=== PATIENT | female | born 1980 | race African-American/Black ===

== ENCOUNTER 2021-10-24 20:52 | Emergency (ER) | payer OTHER ==
[2021-10-24 23:29] LABS: #Eosinphils 0.1 10x3/uL (0.0-0.5); #Monocytes 0.9 10x3/uL (0.0-1.1); #Neutrophils 8.8 10x3/uL (1.5-8.4); %Basophils 0.3 % (0.0-2.0); %Eosinophils 0.9 % (0.0-6.0); %Lymphocytes 25.2 % (18.0-47.0); %Monocytes 6.5 % (0.0-10.0); %Neutrophils 66.8 % (40.0-75.0); Hemoglobin 10.8 g/dL (12.0-15.5); Mean Corpuscular Hemoglobin 28.6 pg (27.0-33.0); Mean Corpuscular Volume 89.2 fl (81.6-98.3); Mean Platelet Volume 9.7 fl (7.4-10.4); Platelet Count 294 10x3/uL (150-450); RBC Distribution Width 17.3 % (11.5-14.5); Red Blood Cell (RBC) Count 3.78 10x6/uL (3.90-5.03); White Blood Cell (WBC) Count 13.2 10x3/uL (3.5-10.5)
[2021-10-24 23:33] LABS: ALT (SGPT) 31 U/L (8-55); AST (SGOT) 21 U/L (5-34); Albumin 3.8 g/dL (3.5-5.0); Alkaline Phosphatase 75 U/L (40-110); Anion Gap 10 mmol/L (10-20); BUN (Urea Nitrogen) 12 mg/dL (7.0-18.7); Bilirubin, Total 0.1 mg/dL (0.2-1.2); Calc. Creatinine Clearance 0 mL/min (70-130); Calcium 8.7 mg/dL (7.8-10.44); Carbon Dioxide 29 mmol/L (22-29); Chloride 105 mmol/L (98-107); Glucose 99 mg/dL (70-105); Potassium 3.5 mmol/L (3.5-5.1); Protein, Total 6.8 g/dL (6.0-8.3); Sodium 140 mmol/L (136-145)
[2021-10-25] MEDS ORDERED: Ondansetron ODT 4 MG TAB ONE (00:01)
== END 2021-10-25 00:15 | disposition home or self-care (01) ==
LOC: CSHERS 20:52
DX: R50.9 Fever, unspecified (principal); I10 Essential (primary) hypertension; F17.210 Nicotine dependence, cigarettes, uncomplicated; Z20.822 Contact with and (suspected) exposure to COVID-19
CPT/HCPCS: 36415; 71045; 80053; 84484; 85025; 93005; Q0162

== ENCOUNTER 2023-02-20 14:27 | Emergency (ER) | payer OTHER ==
[2023-02-20] MEDS ORDERED: Lidocaine 1% (PF) 30 ML VIAL ONE (14:56)
[2023-02-20] MEDS ORDERED: Fentanyl 100 MCG/2 ML VIAL ONE (14:57)
== END 2023-02-20 15:40 | disposition home or self-care (01) ==
LOC: CSHERS 14:27
DX: L02.412 Cutaneous abscess of left axilla (principal); I10 Essential (primary) hypertension; F17.210 Nicotine dependence, cigarettes, uncomplicated
CPT/HCPCS: 10060; J2001; J3010

== ENCOUNTER 2023-08-24 10:53 | Emergency (ER) | payer OTHER ==
[~2023-08-24 10:53] MED LIST: Iopamidol 300 61% 100 ML VIAL FS ONE
[2023-08-24] MEDS ORDERED: Acetaminophen 500 MG TAB ONE (12:05)
[2023-08-24 12:10] LABS: #Eosinphils 0.1 10x3/uL (0.0-0.5); #Monocytes 0.5 10x3/uL (0.0-1.1); #Neutrophils 2.4 10x3/uL (1.5-8.4); %Basophils 0.6 % (0.0-2.0); %Eosinophils 2.2 % (0.0-6.0); %Lymphocytes 34.3 % (18.0-47.0); %Neutrophils 51.7 % (40.0-75.0); Hematocrit 35.1 % (34.9-44.5); Hemoglobin 11.3 g/dL (12.0-15.5); Mean Corpuscular HGB CONC 32.2 g/dL (32.0-36.0); Mean Corpuscular Hemoglobin 28.1 pg (27.0-33.0); Mean Corpuscular Volume 87.3 fl (81.6-98.3); Mean Platelet Volume 9.8 fl (7.4-10.4); Platelet Count 277 10x3/uL (150-450); RBC Distribution Width 16.3 % (11.5-14.5); Red Blood Cell (RBC) Count 4.02 10x6/uL (3.90-5.03); White Blood Cell (WBC) Count 4.6 10x3/uL (3.5-10.5)
[2023-08-24 12:23] LABS: ALT (SGPT) 31 U/L (8-55); AST (SGOT) 34 U/L (5-34); Alkaline Phosphatase 58 U/L (40-110); Anion Gap 15 mmol/L (10-20); BUN (Urea Nitrogen) 9 mg/dL (7.0-18.7); Bilirubin, Total 0.3 mg/dL (0.2-1.2); Calc. Creatinine Clearance 0 mL/min (70-130); Calcium 8.5 mg/dL (7.8-10.44); Carbon Dioxide 23 mmol/L (22-29); Chloride 108 mmol/L (98-107); Estimated GFR 87; Globulin 2.6 g/dL (2.4-3.5); Glucose 106 mg/dL (70-105); Potassium 3.9 mmol/L (3.5-5.1); Protein, Total 6.6 g/dL (6.0-8.3); Sodium 142 mmol/L (136-145)
[2023-08-24 12:28] LABS: Troponin I Less than 0.010 ng/mL (< 0.028)
[2023-08-24 12:42] LABS: SARS-CoV-2 NAA Rapid Test Not Detected (NotDetected)
[2023-08-24 13:12] LABS: Bilirubin Neg (Negative); Blood, Urine 250 (Negative); Clarity Clear (Clear); Glucose, Urine (Dipstick) Normal (Negative); Ketone, Urine Negative (Negative); Leukocyte 25 (Negative); Nitrite Negative (Negative); Protein, Urine (Dipstick) 15 mg/dl (Neg-Trace); Urobilinogen Normal mg/dL (Less than 2)
[2023-08-24 13:50] LABS: Pregnancy Test - Urine (BHCG) Negative (Negative); Pregu Control Background? CLEAR/WHITE (CLR/WHITE); Pregu Control Bar Appear? YES (CONTROL BAR)
[2023-08-24 14:02] LABS: Troponin I Less than 0.010 ng/mL (< 0.028)
[2023-08-24 14:29] LABS: Bacteria/HPF 1+ HPF (None Seen); CAUTI Indications for Culture Fever or rigors; WBC/HPF 0-3 HPF (0-3)
[2023-08-24 14:31] LABS: Urine Culture Reflex No No
== END 2023-08-24 15:14 | disposition home or self-care (01) ==
LOC: CSHERS 10:53
DX: J10.1 Influenza due to other identified influenza virus with other respiratory manifestations (principal); B34.9 Viral infection, unspecified; Z20.822 Contact with and (suspected) exposure to COVID-19; F17.210 Nicotine dependence, cigarettes, uncomplicated; I10 Essential (primary) hypertension
CPT/HCPCS: 71046; 71275; 80053; 81001; 81025; 84484; 85025; 93005; 93010; 96360; 96361; Q9967

== ENCOUNTER 2024-08-20 21:38 | Emergency (ER) | payer OTHER ==
[2024-08-20] MEDS ORDERED: Ondansetron ODT 4 MG TAB ONE (22:26)
[2024-08-20] MEDS ORDERED: oxyCODONE 5 MG TAB ONE (22:27)
[2024-08-20] MEDS ORDERED: Acetaminophen 325 MG TAB ONE (22:29)
[2024-08-20] MEDS ORDERED: Lidocaine 1% (PF) 30 ML VIAL ONE (23:57)
== END 2024-08-21 00:30 | disposition home or self-care (01) ==
LOC: CSHERS 21:38
DX: L02.412 Cutaneous abscess of left axilla (principal); F17.210 Nicotine dependence, cigarettes, uncomplicated
CPT/HCPCS: 10060; Q0162

== ENCOUNTER 2024-11-19 08:37 | Emergency (ER) | payer OTHER ==
[2024-11-19] MEDS ORDERED: Ibuprofen 200 MG TAB ONE (09:30)
[2024-11-19] MEDS ORDERED: Acetaminophen 500 MG TAB ONE (10:41)
== END 2024-11-19 10:06 | disposition home or self-care (01) ==
LOC: CSHERS 08:37
DX: B34.9 Viral infection, unspecified (principal); F17.210 Nicotine dependence, cigarettes, uncomplicated
CPT/HCPCS: 71046; 87428